=== PATIENT | male | born 1960 | race Caucasian/White ===

== ENCOUNTER 2017-10-25 00:53 | Inpatient (IN) | payer BC ==
[2017-10-22 09:52] VITALS: BP 170/86
[2017-10-22 10:13] LABS: BASOPHIL # 0.1 10^3/uL (0.0-0.1); BASOPHIL % 0.6 % (0.0-0.2); BILIRUBIN,URINE NEGATIVE (NEGATIVE); EOSINOPHIL # 0.4 10^3/uL (0.0-0.2); EOSINOPHIL % 4.7 % (0.0-5.0); LYMPHOCYTES # 2.7 10^3/uL (1.0-4.8); LYMPHOCYTES % 31.4 % (24.0-44.0); MEAN CELL HGB 30.7 pg (26-34); MEAN CELL HGB CONCENTRATION 33.8 g/dL (33-37); MEAN CORP VOLUME 90.8 fL (78-100); MEAN PLATELET VOLUME 9.7 fL (7.8-11.0); MONOCYTES # 1.3 10^3/uL (0.3-0.8); MONOCYTES % 15.3 % (5.0-12.0); NEUTROPHILS % 47.8 % (41.0-85.0); RED CELL DISTRIBUTION WIDTH 13.2 % (11.5-14.5); UROBILINOGEN,URINE NORMAL (NEGATIVE); WHITE BLOOD CELL 8.4 10^3/uL (4.5-11.0)
[2017-10-22 10:24] LABS: APPEARANCE,URINE CLEAR (CLEAR); UA COLOR YELLOW (YELLOW)
--- NOTE | 2017-10-22 10:26 | PCM.EKG ---
[facility] Test Date: 2017-10-22 Test Time: 10:29:36 Pat Name: DOMINIC LAZO Department: Room: Gender: M Manager Mortgage: : 1960 Requested By: GURU SEGOVIA Order Number: [id number] Reading MD: Gilbert Romero Measurements Intervals [place] Rate: 72 P: 77 WI: 156 QRS: 79 QRSD: 100 T: 64 QT: 384 QTc: 420 Interpretive Statements Normal sinus rhythm Normal ECG No previous ECG available for comparison Electronically Signed On 10-25-2017 8:06:03 CDT by Gilbert Romero Please click the below link to view image of tracing.
[2017-10-22 10:28] LABS: CALCIUM 9.1 mg/dL (8.4-10.5); CARBON DIOXIDE 27.8 mmol/L (20.0-32)
[~2017-10-25] VITALS: Ht 172.7 cm; Wt 105.7 kg
[2017-10-25] VITALS (11 sets, daily range): BP systolic 111–149; BP diastolic 66–96
[~2017-10-25 00:53] MED LIST: BUPR1FIL5 SL; GABA300C10 PO; MELO15TA24 PO; TEST200V3 IM
[2017-10-25] MEDS ORDERED: LACTATED RINGERS 1,000 ML ONE (05:28)
[2017-10-25] MEDS ORDERED: VANCOMYCIN HCL 2 GM ONE (05:29)
[2017-10-25] MEDS ORDERED: NS 500ML 500 ML IV ONE (05:29)
[2017-10-25] MEDS ORDERED: BACTROBAN OINTMENT TP ONE ×2 (05:29→21:04)
[2017-10-25] MEDS ORDERED: ANCEF 3 GM in NS 100ML 100 ML IV ONE (06:00)
[2017-10-25] MEDS ORDERED: CELEBREX PO SCH ×2 (07:00→21:00)
[2017-10-25] MEDS ORDERED: TYLENOL PO SCH (07:00)
[2017-10-25] MEDS: TYLENOL PO SCH ×3 (07:00→19:00)
[2017-10-25] MEDS ORDERED: NEURONTIN PO SCH (07:00)
[2017-10-25] MEDS ORDERED: NEOSTIGMINE ONE (07:04)
[2017-10-25] MEDS ORDERED: DECADRON ONE (07:04)
[2017-10-25] MEDS ORDERED: ZOFRAN ONE (07:04)
[2017-10-25] MEDS ORDERED: DIPRIVAN IV ONE (07:05)
[2017-10-25] MEDS ORDERED: ZEMURON IV ONE (07:05)
[2017-10-25] MEDS ORDERED: SUBLIMAZE ONE (07:05)
[2017-10-25] MEDS ORDERED: VERSED ONE ×2 (07:05→10:33)
[2017-10-25] MEDS ORDERED: SENSORCAINE-MPF 0.5% VIAL ONE (07:06)
[2017-10-25] MEDS ORDERED: LIDOCAINE 2% VIAL ONE (07:06)
[2017-10-25] MEDS ORDERED: NAROPIN 0.2% 40 MG/20 ML VIAL ONE (07:06)
[2017-10-25] MEDS ORDERED: LACTATED RINGERS 2,000 ML ONE (07:06)
[2017-10-25] MEDS ORDERED: CLONIDINE 1,000 MCG/10 ML VIAL EP ONE (07:07)
[2017-10-25] MEDS ORDERED: TRANEXAMIC ACID IV ONE (07:23)
[2017-10-25] MEDS ORDERED: SODIUM CHLORIDE IR ONE (07:27)
[2017-10-25] MEDS ORDERED: NS 250ML 250 ML IV ONE (07:27)
[2017-10-25] MEDS ORDERED: NS 3000ML IRR IR ONE (07:27)
[2017-10-25] MEDS ORDERED: NS 100ML 100 ML IV ONE (07:27)
[2017-10-25] MEDS ORDERED: EXPAREL 266 MG/20 ML VIAL IJ ONE (08:27)
[2017-10-25] MEDS ORDERED: VANCOMYCIN HCL 2 GM in NS 250ML 250 ML IV ONE (09:00)
[2017-10-25] MEDS: LACTATED RINGERS 1,000 ML IV SCH ×2 (09:54→20:13)
[2017-10-25] MEDS ORDERED: CELEBREX ONE (09:55)
[2017-10-25] MEDS ORDERED: TYLENOL PO ONE (09:55)
[2017-10-25] MEDS ORDERED: NEURONTIN ONE (09:55)
[2017-10-25] MEDS ORDERED: DILAUDID ONE (10:23)
[2017-10-25] MEDS ORDERED: LACTATED RINGERS 1,000 ML IV SCH (14:00)
[2017-10-25] MEDS ORDERED: DILAUDID IV PRN (14:00)
[2017-10-25] MEDS ORDERED: VANCOMYCIN HCL 2 GM in NS 500ML 500 ML IV PRN (14:00)
[2017-10-25] MEDS ORDERED: CEPACOL SORE THROAT LOZENGE MM PRN (14:00)
--- NOTE | 2017-10-25 14:15 | DIREP ---
PROCEDURE:XRAY KNEE 2 VWS-LT COMPARISON:None. INDICATIONS:postop FINDINGS: Postoperative AP and lateral radiographs demonstrate the left total knee arthroplasty components to be well seated and in anatomic alignment without evidence of fracture. There appears to have been resurfacing of the posterior patella as well. CONCLUSION: 1. Left total knee arthroplasty in anatomic alignment without evidence of fracture. Dictated by: Ollie Adair M.D. on 10/25/2017 at 02:13 PM
--- NOTE | 2017-10-25 14:55 | NUR ---
REPORT PT ARRIVED IN THE UNIT FROM OR. RECEIVED REPORT FROM GAVIN GARNER. PT HAD A TOTAL KNEE ON LEFT KNEE AND IS ON ICEMAN AND BILATERAL SCD'S. PT REPORTS PAIN OF 9 ON A SCALE OF 0-10 AND ASKED FOR WATER. DENIES ANY OTHER NEEDS AT THIS TIME.
[2017-10-25] MEDS: NEURONTIN PO SCH ×2 (15:00→20:15)
[2017-10-25] MEDS: TYLENOL #4 PO SCH ×3 (15:23→21:05)
--- NOTE | 2017-10-25 15:43 | OPH ---
DATE OF SURGERY: 10/25/2017 PREOPERATIVE DIAGNOSIS: Osteoarthritis of the left knee. POSTOPERATIVE DIAGNOSIS: Osteoarthritis of the left knee. OPERATIVE PROCEDURE: Left total knee arthroplasty using Medacta size 6 femur, a size 6 tibia and 11 mm insert, a large dome patella. All components were cemented. We used a Medacta severe knee. ANESTHESIA: General endotracheal. TOURNIQUET TIME: 95 minutes at 300 mmHg. DRAINS: None. BLOOD LOSS: 400 mL. DESCRIPTION OF INDICATIONS: A 57-year-old male with left knee pain for several years. He has had gotten to the point now where he limps quite a bit. He is unable to work. He has difficulty with night pain as well as pain with just household ambulation. He has tried different anti-inflammatories in the past. He has had several cortisone injections with only temporary relief. He has tried bracing and physical therapy as well as [id number] ____. His x-rays show that he is [id number] medially as well as about the patellofemoral joint. The patient felt exhausted his conservative options and taken to the operating room today for left total knee arthroplasty. DESCRIPTION OF PROCEDURE: This patient was placed on the operating table in the supine position. General endotracheal anesthetic was induced without difficulty. The patient had the left thigh padded and a tourniquet was applied. Left lower extremity was then sterilely prepped and draped. The patient had the leg exsanguinated with an Esmarch and the tourniquet was inflated to 300 mmHg. The knee was flexed to 90 degrees. An anterior incision was made about the knee. Incision was taken through the skin and the subcutaneous tissues. Full thickness flaps were developed medially and laterally. The patient had a medial parapatellar arthrotomy performed. The patella was deviated laterally. The patient had the anterior and posterior cruciate ligaments released and removed. Medial and lateral meniscectomies were performed. The capsule and the MCL were released around the posterior medial corner. The osteophytes about the distal femur were trimmed with a rongeur, both medially and laterally. An intramedullary drill hole was made in the center of the femur. The distal femoral cutting block that was attached to the IM aby was placed about the distal femur, once the IM aby was passed down the shaft of the femur. The patient had the cutting block set at 9 mm in 6 degrees of valgus. The cutting block was pinned into position and the distal femoral cut was made with the power saw. The patient then had the bent knee retractor applied. The tibia was subluxed anteriorly. An intramedullary hole was made about the tibia and the tibial cutting block that was attached to the IM aby was advanced to the anteromedial portion of the tibia. The IM aby was placed down the shaft of the tibia. The cutting block was adjusted for rotation, posterior slope, varus valgus as well as depth of cut. The cutting block was pinned into position and the tibial cut was made with the power saw at 3 degrees of posterior slope. The cutting block was then removed and the IM aby was removed. The patient had the attention turned back to the femur. The #2 femoral jig was placed about the distal femur and held into position with multiple pins. It measured a size 6. The size 6, #3 jig was then placed about the distal femur and held into position with 2 screws and 2 pins. The anterior and posterior femoral cuts as well as the chamfer cuts were made. The patient had the tibia subluxed anteriorly using the bent knee retractor. The patient had the size 6 tibial trial component positioned about the tibia and held into position with multiple pins. The central drill hole was made. The cruciate punch was then used to stabilize the tibial component. The patient then had the trial reduction done with a 6 tibia, a 6 femur. We eventually got up to 11 mm insert. The 11 mm insert had full extension and good stability at 90 degrees of flexion. The patient had the final medial and lateral femoral drill holes made. The femoral sulcus cut was made. Trial components were all removed from the knee. The bone ends were copiously irrigated and dried and then the size 6 tibial component was cemented into position. The 11 mm insert was impacted and secured with an anterior screw. The size 6 femoral component was likewise cemented as was the patella. The patellar cut had been made. The drill holes had been made and a large dome patella had good coverage. The patellar component was then cemented. The excess cement was removed with curettes. Once the excess cement was removed with curettes and all the cement had hardened, the knee was irrigated with Betadine-containing solution for 3 minutes. The patient then had the tourniquet released and the bleeding was controlled with the Aquamantys. The patient then had the capsule closed with a #2 PDS in interrupted mjjjhm-[id number] manner. The subcutaneous was then closed with a 2-0 barbed Monocryl in a running manner. The skin was closed with alok. A Prevena suction type dressing was applied, reinforced with 4 x 4's, cast padding and Arun wrap. The patient was extubated in the operating room, sent to recovery in stable condition. Rai Banda MD DR: MINO/katelin JOB# [id number]
--- NOTE | 2017-10-25 16:21 | PRM.PN ---
Subjective Subjective Date: Oct 25, 2017 Time: 16:20 Subjective Awake and alert Some pain VSS NVM+ Stable Patient History: Chronic obstructive pulmonary disease 32 MOTHER, , Age:57 33 FATHER, , Age:72 Congestive heart failure 33 FATHER, , Age:72 VTE VTE Risk Total Score: 3 VTE Risk Score VTE Risk: Score 0-1 = Low Risk (Aggressive mobilization; early ambulation; no VTE prophylaxis required) Score 2: Moderate Risk (Intermittent/Pneumatic Compression Device OR Lovenox/Heparin/Coumadin) Score 3-4: High Risk (Intermittent/Pneumatic Compression Device AND Lovenox/Heparin/Coumadin) Score > or =5: Highest Risk (Intermittent/Pneumatic Compression Device AND Lovenox/Heparin/Coumadin) Review of Systems Allergies: Coded Allergies: No Known Allergies (Unverified , 02/06/15) Scheduled Buprenorphine Hcl/Naloxone Hcl (Suboxone 8 Mg-2 Mg Sl Film), 1 STRIP SL TID, ( Reported) Gabapentin (Gabapentin), 1 CAP PO TID, (Reported) Meloxicam (Meloxicam), 1 TAB PO DAILY, (Reported) Testosterone Cypionate (Testosterone Cypionate), 200 MG IM Q 2 WEEKS, (Reported) Objective Vitals and I/O Vital Sign - Last 24 Hours 10/25/17 10/25/17 10/25/17 10/25/17 09:43 09:43 10:00 10:03 Temp 99 99.0 Pulse 70 69 72 Resp 18 18 18 B/P (MAP) 128/76 (93) 133/77 (95) 140/87 (104) Pulse Ox 96 98 98 O2 Delivery Room Air Room Air Nasal Canula Nasal Canula O2 Flow Rate 2 2 10/25/17 10/25/17 10/25/17 10/25/17 10:09 13:42 13:42 13:57 Temp 97.6 97.4 97.6 97.4 Pulse 76 93 81 Resp 18 18 18 B/P (MAP) 111/75 (87) 134/96 (109) 140/89 (106) Pulse Ox 99 100 97 O2 Delivery Nasal Canula Non-Rebreather Nasal Canula O2 Flow Rate 2 15 15 3 10/25/17 10/25/17 10/25/17 10/25/17 14:12 14:27 14:42 16:08 Temp 97.8 97.8 98.0 97.8 97.8 98.0 Pulse 78 62 74 89 Resp 18 18 18 18 B/P (MAP) 149/88 (108) 134/87 (103) 131/83 (99) Pulse Ox 97 97 96 97 O2 Delivery Nasal Canula Nasal Canula Nasal Canula Nasal Cannula O2 Flow Rate 3 3 3 3.00 FiO2 32 10/25/17 16:10 Resp 18 Pulse Ox 97 Course Vitals & review Data Vital Sign - Last 24 Hours 10/25/17 10/25/17 10/25/17 10/25/17 09:43 09:43 10:00 10:03 Temp 99 99.0 Pulse 70 69 72 Resp 18 18 18 B/P (MAP) 128/76 (93) 133/77 (95) 140/87 (104) Pulse Ox 96 98 98 O2 Delivery Room Air Room Air Nasal Canula Nasal Canula O2 Flow Rate 2 2 10/25/17 10/25/17 10/25/17 10/25/17 10:09 13:42 13:42 13:57 Temp 97.6 97.4 97.6 97.4 Pulse 76 93 81 Resp 18 18 18 B/P (MAP) 111/75 (87) 134/96 (109) 140/89 (106) Pulse Ox 99 100 97 O2 Delivery Nasal Canula Non-Rebreather Nasal Canula O2 Flow Rate 2 15 15 3 10/25/17 10/25/17 10/25/17 10/25/17 14:12 14:27 14:42 16:08 Temp 97.8 97.8 98.0 97.8 97.8 98.0 Pulse 78 62 74 89 Resp 18 18 18 18 B/P (MAP) 149/88 (108) 134/87 (103) 131/83 (99) Pulse Ox 97 97 96 97 O2 Delivery Nasal Canula Nasal Canula Nasal Canula Nasal Cannula O2 Flow Rate 3 3 3 3.00 FiO2 32 10/25/17 16:10 Resp 18 Pulse Ox 97 Current Medications Medications (Trade) Dose Ordered Sig/Elsie PRN Reason Start Time Stop Time Status Last Admin Acetaminophen (Tylenol) 1,000 mg Q6H 10/25/17 07:00 11/24/17 06:59 Acetaminophen/ Codeine Phosphate (Tylenol #4) 1 tablet Q4H 10/25/17 14:00 11/24/17 13:59 10/25/17 15:23 Acetaminophen/ Codeine Phosphate (Tylenol #4) 2 tablet Q4H PRN PAIN 10/25/17 14:00 11/24/17 13:59 Celecoxib (Celebrex) 200 mg BID 10/25/17 21:00 11/24/17 20:59 Celecoxib (Celebrex) 200 mg Q12HR 10/25/17 21:00 10/25/17 21:01 Docusate Sodium (Colace) 100 mg DAILY 10/26/17 09:00 11/25/17 08:59 Famotidine (Pepcid) 20 mg DAILY 10/26/17 09:00 11/25/17 08:59 Gabapentin (Neurontin) 300 mg TID 10/25/17 15:00 11/24/17 14:59 Gabapentin (Neurontin) 400 mg Q24HRS 10/26/17 07:00 10/26/17 07:01 Hydromorphone HCl (Dilaudid) 0.5 mg Q5MIN PRN PAIN MILD 10/25/17 14:00 10/26/17 13:59 10/25/17 14:20 Hydromorphone HCl (Dilaudid) 3 mg Q4H PRN PAIN 8-10 10/25/17 14:00 11/24/17 13:59 Rivaroxaban (Xarelto) 10 mg DAILY 10/26/17 09:00 11/25/17 08:59 Throat Lozenges (Cepacol Sore Throat Lozenge) 1 each PRN PRN SORE THROAT 10/25/17 14:00 11/24/17 13:59 Vancomycin HCl 2 gm/Sodium Chloride 500 ml @ 175 mls/hr OT PRN MRSA Colonized 10/25/17 14:00 11/24/17 13:59 GURU SEGOVIA MD Oct 25, 2017 16:21
--- NOTE | 2017-10-25 17:13 | HPH ---
ADMIT DATE: 10/25/2017 CHIEF COMPLAINT: Painful left knee. HISTORY OF PRESENT ILLNESS: The patient is a 57-year-old male with a 2-3 year history of pain about the left knee secondary to osteoarthritis. The patient has gotten to the point where he has difficulty working at his job because of difficulty with ambulation. He currently takes meloxicam 15 mg once a day as well as gabapentin. In the past, he has been on different anti-inflammatories. He has had several cortisone injections with only temporary relief. The patient complains of night pain as well as limping. He has used bracing and different types of ____. He has had physical therapy at home. His x-rays show that he is mjag-qk-jwnw medially as well as about the patellofemoral joint. MEDICATIONS: Include Suboxone, testosterone, meloxicam 15 mg once a day, gabapentin 300 mg once a day. MEDICAL PROBLEMS: None. PREVIOUS SURGICAL PROCEDURES: Include herniorrhaphy, right shoulder reconstruction, right total hip arthroplasty. ALLERGIES: The patient has no known drug allergies. SOCIAL HISTORY: He lives in [place]. He stopped smoking several years ago. He does not drink alcohol. FAMILY HISTORY: Positive for rheumatoid arthritis. REVIEW OF SYSTEMS: The patient's review of systems is negative for chest pain, shortness of breath, nausea, vomiting, melena, hematochezia, dysuria, hematuria, fever, chills or weight loss. PHYSICAL EXAMINATION: GENERAL: Shows a 5 feet 8 inches, 224 pounds, white male in no acute distress. HEENT: Within normal limits. CHEST: Clear to auscultation bilaterally. HEART: Regular rate and rhythm, but no murmurs. ABDOMEN: Soft and nontender. He has good bowel sounds. EXTREMITIES: Knee exam shows a 1+ effusion. He has full extension with 120 degrees of flexion, good medial and lateral stability, mild to moderate crepitation. His Jesus Alberto and posterior drawer exams are normal. NEUROLOGIC: He is awake and alert. He is oriented x 3. His cranial nerves 2-12 are grossly intact. He has 5/5 strength in all muscle groups of both upper and lower extremities. ASSESSMENT: Osteoarthritis, left knee. PLAN: The patient is being admitted for left total knee arthroplasty. The risks and hazards of the procedure have been discussed with the patient. He understands the risk involved and wants to proceed as planned. Rai Banda MD DR: MINO/katelin JOB# [id number]
[2017-10-25 17:53] LABS: MEAN CELL HGB 30.4 pg (26-34); MEAN CELL HGB CONCENTRATION 33.1 g/dL (33-37); MEAN CORP VOLUME 91.7 fL (78-100); MEAN PLATELET VOLUME 9.6 fL (7.8-11.0); RED CELL DISTRIBUTION WIDTH 13.4 % (11.5-14.5)
[2017-10-25] MEDS: CELEBREX PO SCH (20:16)
[2017-10-25] MEDS: BACTROBAN TP SCH (21:30)
--- NOTE | 2017-10-26 00:12 | NUR ---
PT C/O PAIN 08/17RT KNEE. PT TO BE GIVEN PAIM MEDICATION SEE eMAR.
[2017-10-26] MEDS: TYLENOL #4 PO PRN ×3 (00:17→20:39)
[2017-10-26 00:40] VITALS: BP 112/84
[2017-10-26] MEDS: TYLENOL PO SCH ×4 (01:00→19:00)
[2017-10-26] MEDS: TYLENOL #4 PO SCH ×6 (02:00→22:00)
[2017-10-26 04:30] VITALS: BP 112/89
[2017-10-26 04:58] LABS: HEMOGLOBIN 14.1 g/dL (13.9-16.3); MEAN CELL HGB 30.9 pg (26-34); MEAN CELL HGB CONCENTRATION 33.8 g/dL (33-37); MEAN CORP VOLUME 91.4 fL (78-100); MEAN PLATELET VOLUME 9.9 fL (7.8-11.0); RED CELL DISTRIBUTION WIDTH 13.3 % (11.5-14.5); WHITE BLOOD CELL 14.9 10^3/uL (4.5-11.0)
[2017-10-26] MEDS ORDERED: NEURONTIN PO SCH (07:00)
--- NOTE | 2017-10-26 07:04 | NUR ---
GABAPENTIN 0700 DOSE NOT GIVEN PT TAKES 300MG TID ALREADY, WILL GET CLARIFACATION
--- NOTE | 2017-10-26 07:08 | NUR ---
CALARIFIED ORDER WITH RYAN HORTON HE SAID OK TO D/C 400MG DOSE
--- NOTE | 2017-10-26 07:12 | NUR ---
REPORT REPORT RECEIVED FROM SENIOR MECHANICAL PROJECT MANAGER
[2017-10-26 08:04] VITALS: BP 106/71
[2017-10-26] MEDS: BACTROBAN TP SCH ×2 (09:00→20:39)
[2017-10-26] MEDS: PEPCID PO SCH (09:08)
[2017-10-26] MEDS: COLACE PO SCH (09:10)
[2017-10-26] MEDS: NEURONTIN PO SCH ×3 (09:10→20:39)
[2017-10-26] MEDS: CELEBREX PO SCH ×2 (09:10→20:39)
[2017-10-26] MEDS: XARELTO PO SCH (09:11)
[2017-10-26] MEDS: DILAUDID IV PRN ×2 (09:22→18:54)
--- NOTE | 2017-10-26 10:30 | NUR ---
DISCHARGE PLAN CM VISITED WITH PATIENT REGARDING DISCHARGE PLAN AND NEEDS. PATIENT LIVES AT HOME ALONE BUT WILL BE STAYING WITH A FRIEND IN [place], [place] AFTER DISCHARGE SO HE CAN HAVE SOME EXTRA HELP DURING HIS RECOVERY. HE HAS A WALKER IN PLACE AND WANTS TO DO HIS PHYSICAL THERAPY WITH [facility] IN [place]. HE STATES HE ALSO WANTS TO GET A CPM IF POSSIBLE. PATIENT DENIES NEED FOR ANY ADDITIONAL RESOURCES AT THIS TIME. CM CONTACTED [facility] REGARDING HOME HEALTH REFERRAL. ONCE PHYSICAL THERAPY EVALUATION IS COMPLETE, CM WILL FAX CLINICAL INFORMATION TO [facility]. CM ASKED [facility] FOR CONTACT INFORMATION FOR LOCAL [employer]. CM THEN CONTACTED [facility] AND REQUESTED A BLANK ORDER FOR A CPM. DISCHARGE GOAL IS TO DISCHARGE TO [place] WITH HIS FRIEND WITH [facility] FOR PHYSICAL THERAPY, PENDING INSURANCE APPROVAL. CM DEPT WILL CONTINUE TO MONITOR DISCHARGE NEEDS.
--- NOTE | 2017-10-26 10:49 | PRM.PN ---
Subjective Subjective Date: Oct 26, 2017 Time: 10:48 Subjective Up in chair Pain ok Afebrile VSS [id number] Cont with PT Patient History: Chronic obstructive pulmonary disease 32 MOTHER, , Age:57 33 FATHER, , Age:72 Congestive heart failure 33 FATHER, , Age:72 VTE VTE Risk Total Score: >5 VTE Risk Score VTE Risk: Score 0-1 = Low Risk (Aggressive mobilization; early ambulation; no VTE prophylaxis required) Score 2: Moderate Risk (Intermittent/Pneumatic Compression Device OR Lovenox/Heparin/Coumadin) Score 3-4: High Risk (Intermittent/Pneumatic Compression Device AND Lovenox/Heparin/Coumadin) Score > or =5: Highest Risk (Intermittent/Pneumatic Compression Device AND Lovenox/Heparin/Coumadin) Review of Systems Allergies: Coded Allergies: No Known Allergies (Unverified , 02/06/15) Scheduled Buprenorphine Hcl/Naloxone Hcl (Suboxone 8 Mg-2 Mg Sl Film), 1 STRIP SL TID, ( Reported) Gabapentin (Gabapentin), 1 CAP PO TID, (Reported) Meloxicam (Meloxicam), 1 TAB PO DAILY, (Reported) Testosterone Cypionate (Testosterone Cypionate), 200 MG IM Q 2 WEEKS, (Reported) Objective Vitals and I/O Vital Sign - Last 24 Hours 10/25/17 10/25/17 10/25/17 10/25/17 13:42 13:42 13:57 14:12 Temp 97.6 97.4 97.8 97.6 97.4 97.8 Pulse 93 81 78 Resp 18 B/P (MAP) 134/96 (109) 140/89 (106) 149/88 (108) Pulse Ox 100 97 97 O2 Delivery Non-Rebreather Nasal Canula Nasal Canula O2 Flow Rate 15 15 3 3 10/25/17 10/25/17 10/25/17 10/25/17 14:27 14:42 16:08 16:10 Temp 97.8 98.0 97.8 98.0 Pulse 62 74 89 Resp 18 B/P (MAP) 134/87 (103) 131/83 (99) Pulse Ox 97 96 97 97 O2 Delivery Nasal Canula Nasal Canula Nasal Cannula O2 Flow Rate 3 3 3.00 FiO2 32 10/25/17 10/25/17 10/25/17 10/25/17 16:23 16:30 16:48 16:54 Temp 98.7 98.7 Pulse 84 Resp 18 B/P (MAP) 145/66 (92) Pulse Ox 90 O2 Delivery Room Air Nasal Cannula Nasal Cannula Nasal Cannula O2 Flow Rate 3.00 3.00 3.00 10/25/17 10/25/17 10/25/17 10/26/17 20:30 20:48 21:11 00:40 Temp 98.0 97.4 98.0 97.4 Pulse 77 86 77 Resp 18 18 B/P (MAP) 132/78 (96) 112/84 (93) Pulse Ox 98 O2 Delivery Room Air Nasal Cannula Nasal Cannula Room Air O2 Flow Rate 2.00 3.00 10/26/17 10/26/17 10/26/17 04:30 08:04 08:55 Temp 98.2 97.9 98.2 97.9 Pulse 77 65 84 Resp 18 B/P (MAP) 112/89 (97) 106/71 (83) Pulse Ox 94 97 O2 Delivery Room Air Room Air Room Air FiO2 21 Intake and Output 10/25/17 10/25/17 10/26/17 15:00 23:00 07:00 Intake Total 6750 ml 320 ml 600 ml Output Total 525 ml 2025 ml 2900 ml Balance 6225 ml -1705 ml -2300 ml Course Sepsis Screening Results: Posi: NEGATIVE Sepsis Qualifier/Stage: NO DEFINITE RISK Vitals & review Data Vital Sign - Last 24 Hours 10/25/17 10/25/17 10/25/17 10/25/17 09:43 09:43 10:00 10:03 Temp 99 99.0 Pulse 70 69 72 Resp 18 B/P (MAP) 128/76 (93) 133/77 (95) 140/87 (104) Pulse Ox 96 98 98 O2 Delivery Room Air Room Air Nasal Canula Nasal Canula O2 Flow Rate 2 2 10/25/17 10/25/17 10/25/17 10/25/17 10:09 13:42 13:42 13:57 Temp 97.6 97.4 97.6 97.4 Pulse 76 93 81 Resp 18 B/P (MAP) 111/75 (87) 134/96 (109) 140/89 (106) Pulse Ox 99 100 97 O2 Delivery Nasal Canula Non-Rebreather Nasal Canula O2 Flow Rate 2 15 15 3 10/25/17 10/25/17 10/25/17 10/25/17 14:12 14:27 14:42 16:08 Temp 97.8 97.8 98.0 97.8 97.8 98.0 Pulse 78 62 74 89 Resp 18 18 18 18 B/P (MAP) 149/88 (108) 134/87 (103) 131/83 (99) Pulse Ox 97 97 96 97 O2 Delivery Nasal Canula Nasal Canula Nasal Canula Nasal Cannula O2 Flow Rate 3 3 3 3.00 FiO2 32 10/25/17 16:10 Resp 18 Pulse Ox 97 Current Medications Medications (Trade) Dose Ordered Sig/Elsie PRN Reason Start Time Stop Time Status Last Admin Acetaminophen (Tylenol) 1,000 mg Q6H 10/25/17 07:00 11/24/17 06:59 Acetaminophen/ Codeine Phosphate (Tylenol #4) 1 tablet Q4H 10/25/17 14:00 11/24/17 13:59 10/25/17 15:23 Acetaminophen/ Codeine Phosphate (Tylenol #4) 2 tablet Q4H PRN PAIN 10/25/17 14:00 11/24/17 13:59 Celecoxib (Celebrex) 200 mg BID 10/25/17 21:00 11/24/17 20:59 Celecoxib (Celebrex) 200 mg Q12HR 10/25/17 21:00 10/25/17 21:01 Docusate Sodium (Colace) 100 mg DAILY 10/26/17 09:00 11/25/17 08:59 Famotidine (Pepcid) 20 mg DAILY 10/26/17 09:00 11/25/17 08:59 Gabapentin (Neurontin) 300 mg TID 10/25/17 15:00 11/24/17 14:59 Gabapentin (Neurontin) 400 mg Q24HRS 10/26/17 07:00 10/26/17 07:01 Hydromorphone HCl (Dilaudid) 0.5 mg Q5MIN PRN PAIN MILD 10/25/17 14:00 10/26/17 13:59 10/25/17 14:20 Hydromorphone HCl (Dilaudid) 3 mg Q4H PRN PAIN 8-10 10/25/17 14:00 11/24/17 13:59 Rivaroxaban (Xarelto) 10 mg DAILY 10/26/17 09:00 11/25/17 08:59 Throat Lozenges (Cepacol Sore Throat Lozenge) 1 each PRN PRN SORE THROAT 10/25/17 14:00 11/24/17 13:59 Vancomycin HCl 2 gm/Sodium Chloride 500 ml @ 175 mls/hr OT PRN MRSA Colonized 10/25/17 14:00 11/24/17 13:59 GURU SEGOVIA MD Oct 26, 2017 10:49
--- NOTE | 2017-10-26 10:59 | NUR ---
Post-op day 1 follow-up post femoral, adductor canal, and iPACK block to left leg. Pt v/s stable. Pt has ambulated with PT. Pt states he has had a lot of pain from muscle spasms in upper thigh radiating down along lateral side of knee and into his foot. Pt states pain/muscle spasms are improving with medication. Pt states he has had very little pain in the rest of his knee. Block site is cdi. Pt states no questions or concerns.
[2017-10-26 11:20] VITALS: BP 111/68
--- NOTE | 2017-10-26 16:04 | NUR ---
STATUS CPM ON AT THIS TIME. 2 TYLENOL #4 ADMINISTERED AT THIS TIME. WILL CONT TO MONITOR CALL LIGHT IN REACH
[2017-10-26 16:56] VITALS: BP 111/64
[2017-10-26 19:44] VITALS: BP 123/81
--- NOTE | 2017-10-26 20:12 | NUR ---
PT IN HALLWAY AMBULATING WITH ROLLING WALKER WITH TRANSMITTER SUPERVISOR, TOLERATED WELL, WENT 500 FT. PT BACK IN ROOM, SITTING UP IN BED, SIDE RAILS UP CALL LIGHT IN REACH. VISITORS IN ROOM.
--- NOTE | 2017-10-26 20:39 | NUR ---
PT RECEIVED PAIN MEDICATION AND HIS ORDERED HS MEDICATIONS SEE eMAR, PT WAS PLACED ON CPM, MACHINE SECURE AND FUNCTIONING PROPERLY. SIDE RAILS UP X 3, CALL LIGHT REMAINS IN REACH. CPM SET AT FLEXION AT 65 DEGREES AND -5 FLEXION.
[2017-10-27 00:39] VITALS: BP 110/57
[2017-10-27] MEDS: TYLENOL #4 PO PRN ×5 (00:45→23:24)
[2017-10-27] MEDS: TYLENOL PO SCH ×5 (01:00→23:24)
[2017-10-27] MEDS: TYLENOL #4 PO SCH ×6 (02:00→22:00)
[2017-10-27 03:54] VITALS: BP 108/66
[2017-10-27 04:57] LABS: HEMOGLOBIN 13.6 g/dL (13.9-16.3); MEAN CELL HGB 30.2 pg (26-34); MEAN CELL HGB CONCENTRATION 32.9 g/dL (33-37); MEAN CORP VOLUME 91.8 fL (78-100); MEAN PLATELET VOLUME 9.9 fL (7.8-11.0); RED CELL DISTRIBUTION WIDTH 13.6 % (11.5-14.5); WHITE BLOOD CELL 12.9 10^3/uL (4.5-11.0)
[2017-10-27 08:02] VITALS: BP 134/84
--- NOTE | 2017-10-27 08:35 | PRM.PN ---
Subjective Subjective Date: Oct 27, 2017 Time: 08:33 Subjective Pain worse this am VSS HGB 13.6 Floey out Cont with PT Add valium for Pain control Patient History: Chronic obstructive pulmonary disease 32 MOTHER, , Age:57 33 FATHER, , Age:72 Congestive heart failure 33 FATHER, , Age:72 VTE VTE Risk Total Score: >5 VTE Risk Score VTE Risk: Score 0-1 = Low Risk (Aggressive mobilization; early ambulation; no VTE prophylaxis required) Score 2: Moderate Risk (Intermittent/Pneumatic Compression Device OR Lovenox/Heparin/Coumadin) Score 3-4: High Risk (Intermittent/Pneumatic Compression Device AND Lovenox/Heparin/Coumadin) Score > or =5: Highest Risk (Intermittent/Pneumatic Compression Device AND Lovenox/Heparin/Coumadin) Review of Systems Allergies: Coded Allergies: No Known Allergies (Unverified , 02/06/15) Scheduled Buprenorphine Hcl/Naloxone Hcl (Suboxone 8 Mg-2 Mg Sl Film), 1 STRIP SL TID, ( Reported) Gabapentin (Gabapentin), 1 CAP PO TID, (Reported) Meloxicam (Meloxicam), 1 TAB PO DAILY, (Reported) Testosterone Cypionate (Testosterone Cypionate), 200 MG IM Q 2 WEEKS, (Reported) Objective Vitals and I/O Vital Sign - Last 24 Hours 10/26/17 10/26/17 10/26/17 10/26/17 08:55 11:16 11:20 16:56 Temp 98.0 97.6 98.0 97.6 Pulse 84 78 73 Resp 18 18 18 B/P (MAP) 111/68 (82) 111/64 (80) Pulse Ox 97 97 96 O2 Delivery Room Air Room Air Room Air Room Air FiO2 21 10/26/17 10/26/17 10/26/17 10/27/17 19:44 20:56 21:20 00:39 Temp 98.3 98.8 98.3 98.8 Pulse 89 90 84 Resp 18 16 17 B/P (MAP) 123/81 (95) 110/57 (74) Pulse Ox 94 94 97 O2 Delivery Room Air Room Air Room Air Room Air 10/27/17 10/27/17 03:54 08:02 Temp 98.0 98.5 98.0 98.5 Pulse 75 71 Resp 17 18 B/P (MAP) 108/66 (80) 134/84 (101) Pulse Ox 94 95 O2 Delivery Room Air Room Air Intake and Output 10/26/17 10/26/17 10/27/17 15:00 23:00 07:00 Intake Total 720 ml 240 ml 740 ml Output Total 1400 ml 900 ml 1875 ml Balance -680 ml -660 ml -1135 ml Course Sepsis Screening Results: Posi: NEGATIVE Sepsis Qualifier/Stage: NO DEFINITE RISK Vitals & review Data Vital Sign - Last 24 Hours 10/25/17 10/25/17 10/25/17 10/25/17 09:43 09:43 10:00 10:03 Temp 99 99.0 Pulse 70 69 72 Resp 18 B/P (MAP) 128/76 (93) 133/77 (95) 140/87 (104) Pulse Ox 96 98 98 O2 Delivery Room Air Room Air Nasal Canula Nasal Canula O2 Flow Rate 2 2 10/25/17 10/25/17 10/25/17 10/25/17 10:09 13:42 13:42 13:57 Temp 97.6 97.4 97.6 97.4 Pulse 76 93 81 Resp 18 B/P (MAP) 111/75 (87) 134/96 (109) 140/89 (106) Pulse Ox 99 100 97 O2 Delivery Nasal Canula Non-Rebreather Nasal Canula O2 Flow Rate 2 15 15 3 10/25/17 10/25/17 10/25/17 10/25/17 14:12 14:27 14:42 16:08 Temp 97.8 97.8 98.0 97.8 97.8 98.0 Pulse 78 62 74 89 Resp 18 B/P (MAP) 149/88 (108) 134/87 (103) 131/83 (99) Pulse Ox 97 97 96 97 O2 Delivery Nasal Canula Nasal Canula Nasal Canula Nasal Cannula O2 Flow Rate 3 3 3 3.00 FiO2 32 10/25/17 16:10 Resp 18 Pulse Ox 97 Current Medications Medications (Trade) Dose Ordered Sig/Elsie PRN Reason Start Time Stop Time Status Last Admin Acetaminophen (Tylenol) 1,000 mg Q6H 10/25/17 07:00 11/24/17 06:59 Acetaminophen/ Codeine Phosphate (Tylenol #4) 1 tablet Q4H 10/25/17 14:00 11/24/17 13:59 10/25/17 15:23 Acetaminophen/ Codeine Phosphate (Tylenol #4) 2 tablet Q4H PRN PAIN 10/25/17 14:00 11/24/17 13:59 Celecoxib (Celebrex) 200 mg BID 10/25/17 21:00 11/24/17 20:59 Celecoxib (Celebrex) 200 mg Q12HR 10/25/17 21:00 10/25/17 21:01 Docusate Sodium (Colace) 100 mg DAILY 10/26/17 09:00 11/25/17 08:59 Famotidine (Pepcid) 20 mg DAILY 10/26/17 09:00 11/25/17 08:59 Gabapentin (Neurontin) 300 mg TID 10/25/17 15:00 11/24/17 14:59 Gabapentin (Neurontin) 400 mg Q24HRS 10/26/17 07:00 10/26/17 07:01 Hydromorphone HCl (Dilaudid) 0.5 mg Q5MIN PRN PAIN MILD 10/25/17 14:00 10/26/17 13:59 10/25/17 14:20 Hydromorphone HCl (Dilaudid) 3 mg Q4H PRN PAIN 8-10 10/25/17 14:00 11/24/17 13:59 Rivaroxaban (Xarelto) 10 mg DAILY 10/26/17 09:00 11/25/17 08:59 Throat Lozenges (Cepacol Sore Throat Lozenge) 1 each PRN PRN SORE THROAT 10/25/17 14:00 11/24/17 13:59 Vancomycin HCl 2 gm/Sodium Chloride 500 ml @ 175 mls/hr OT PRN MRSA Colonized 10/25/17 14:00 11/24/17 13:59 GURU SEGOVIA MD Oct 27, 2017 08:35
[2017-10-27] MEDS ORDERED: VALIUM PO PRN (09:00)
[2017-10-27] MEDS: COLACE PO SCH (09:45)
[2017-10-27] MEDS: PEPCID PO SCH (09:46)
[2017-10-27] MEDS: NEURONTIN PO SCH ×3 (09:46→21:10)
[2017-10-27] MEDS: CELEBREX PO SCH ×2 (09:49→21:10)
[2017-10-27] MEDS: BACTROBAN TP SCH ×2 (09:50→21:09)
[2017-10-27] MEDS: XARELTO PO SCH (09:50)
[2017-10-27 11:54] VITALS: BP 117/70
--- NOTE | 2017-10-27 12:43 | NUR ---
HOME HEALTH/CPM UPDATE CM CONTACTED [facility] IN [place], [place] REGARDING STATUS OF REFERRAL. PATIENT HAS BEEN APPROVED AND THEY WILL GO TO VISIT PATIENT @ [facility] ON Wednesday10/29/17 TO GET HIM ADMITTED. CM THEN CONTACTED [facility] IN [place] TO CHECK STATUS OF CPM APPROVAL. PATIENT HAS BEEN APPROVED AND THEY WOULD LIKE FOR THE PATIENT TO CALL THEM @ [phone] ONCE HE GETS TO [place] AND THEY WILL DELIVER IT. ALL ABOVE DOCUMENTATION IS DOCUMENTED ON DISCHARGE SUMMARY FOR PATIENT. CM DEPT WILL CONTINUE TO MONITOR DISCHARGE NEEDS.
[2017-10-27 17:34] VITALS: BP 123/76
[2017-10-27 19:00] VITALS: BP 119/72
--- NOTE | 2017-10-27 21:00 | NUR ---
In to assess pt, placed back on CPM at this time. CPM at -5 to [address] Valium PO to be given.
[2017-10-28 00:02] VITALS: BP 132/78
[2017-10-28] MEDS: TYLENOL #4 PO SCH ×3 (02:00→08:44)
[2017-10-28 04:49] VITALS: BP 131/95
[2017-10-28] MEDS: TYLENOL #4 PO PRN ×3 (04:49→13:33)
[2017-10-28] MEDS: TYLENOL PO SCH (04:52)
[2017-10-28 08:36] VITALS: BP 136/64
[2017-10-28] MEDS: CELEBREX PO SCH (08:39)
[2017-10-28] MEDS: NEURONTIN PO SCH (08:40)
[2017-10-28] MEDS: XARELTO PO SCH (08:40)
[2017-10-28] MEDS: PEPCID PO SCH (08:40)
[2017-10-28] MEDS: COLACE PO SCH (08:40)
[2017-10-28] MEDS: BACTROBAN TP SCH (08:41)
--- NOTE | 2017-10-28 11:01 | PRM.PN ---
Subjective Subjective Date: Oct 28, 2017 Time: 11:00 Subjective Pain ok Did stairs today with PT Afebrile Dressing dry Will dc Appt 4 days Patient History: Chronic obstructive pulmonary disease 32 MOTHER, , Age:57 33 FATHER, , Age:72 Congestive heart failure 33 FATHER, , Age:72 VTE VTE Risk Total Score: >5 VTE Risk Score VTE Risk: Score 0-1 = Low Risk (Aggressive mobilization; early ambulation; no VTE prophylaxis required) Score 2: Moderate Risk (Intermittent/Pneumatic Compression Device OR Lovenox/Heparin/Coumadin) Score 3-4: High Risk (Intermittent/Pneumatic Compression Device AND Lovenox/Heparin/Coumadin) Score > or =5: Highest Risk (Intermittent/Pneumatic Compression Device AND Lovenox/Heparin/Coumadin) Review of Systems Allergies: Coded Allergies: No Known Allergies (Unverified , 02/06/15) Scheduled Buprenorphine Hcl/Naloxone Hcl (Suboxone 8 Mg-2 Mg Sl Film), 1 STRIP SL TID, ( Reported) Gabapentin (Gabapentin), 1 CAP PO TID, (Reported) Meloxicam (Meloxicam), 1 TAB PO DAILY, (Reported) Testosterone Cypionate (Testosterone Cypionate), 200 MG IM Q 2 WEEKS, (Reported) Objective Vitals and I/O Vital Sign - Last 24 Hours 10/27/17 10/27/17 10/27/17 10/27/17 11:54 17:34 19:00 19:27 Temp 97.8 98.6 99.0 97.8 98.6 99.0 Pulse 79 76 93 82 Resp 18 18 18 16 B/P (MAP) 117/70 (86) 123/76 (92) 119/72 (88) Pulse Ox 94 94 91 98 O2 Delivery Room Air Room Air Room Air FiO2 21 10/27/17 10/28/17 10/28/17 10/28/17 21:14 00:02 04:49 08:36 Temp 98.2 98.2 96.9 98.2 98.2 96.9 Pulse 87 76 97 Resp 18 18 18 B/P (MAP) 132/78 (96) 131/95 (107) 136/64 (88) Pulse Ox 99 96 97 O2 Delivery Room Air Room Air Room Air Room Air 10/28/17 10/28/17 08:38 08:54 Pulse 97 Resp 18 Pulse Ox 97 O2 Delivery Room Air Room Air FiO2 21 Intake and Output 10/27/17 10/27/17 10/28/17 15:00 23:00 07:00 Intake Total 480 ml 670 ml 702 ml Output Total 900 ml 1300 ml 1100 ml Balance -420 ml -630 ml -398 ml Course Sepsis Screening Results: Posi: NEGATIVE Sepsis Qualifier/Stage: NO DEFINITE RISK Vitals & review Data Vital Sign - Last 24 Hours 10/25/17 10/25/17 10/25/17 10/25/17 09:43 09:43 10:00 10:03 Temp 99 99.0 Pulse 70 69 72 Resp 18 18 B/P (MAP) 128/76 (93) 133/77 (95) 140/87 (104) Pulse Ox 96 98 98 O2 Delivery Room Air Room Air Nasal Canula Nasal Canula O2 Flow Rate 2 2 10/25/17 10/25/17 10/25/17 10/25/17 10:09 13:42 13:42 13:57 Temp 97.6 97.4 97.6 97.4 Pulse 76 93 81 Resp 18 B/P (MAP) 111/75 (87) 134/96 (109) 140/89 (106) Pulse Ox 99 100 97 O2 Delivery Nasal Canula Non-Rebreather Nasal Canula O2 Flow Rate 2 15 15 3 10/25/17 10/25/17 10/25/17 10/25/17 14:12 14:27 14:42 16:08 Temp 97.8 97.8 98.0 97.8 97.8 98.0 Pulse 78 62 74 89 Resp 18 B/P (MAP) 149/88 (108) 134/87 (103) 131/83 (99) Pulse Ox 97 97 96 97 O2 Delivery Nasal Canula Nasal Canula Nasal Canula Nasal Cannula O2 Flow Rate 3 3 3 3.00 FiO2 32 10/25/17 16:10 Resp 18 Pulse Ox 97 Current Medications Medications (Trade) Dose Ordered Sig/Elsie PRN Reason Start Time Stop Time Status Last Admin Acetaminophen (Tylenol) 1,000 mg Q6H 10/25/17 07:00 11/24/17 06:59 Acetaminophen/ Codeine Phosphate (Tylenol #4) 1 tablet Q4H 10/25/17 14:00 11/24/17 13:59 10/25/17 15:23 Acetaminophen/ Codeine Phosphate (Tylenol #4) 2 tablet Q4H PRN PAIN 10/25/17 14:00 11/24/17 13:59 Celecoxib (Celebrex) 200 mg BID 10/25/17 21:00 11/24/17 20:59 Celecoxib (Celebrex) 200 mg Q12HR 10/25/17 21:00 10/25/17 21:01 Docusate Sodium (Colace) 100 mg DAILY 10/26/17 09:00 11/25/17 08:59 Famotidine (Pepcid) 20 mg DAILY 10/26/17 09:00 11/25/17 08:59 Gabapentin (Neurontin) 300 mg TID 10/25/17 15:00 11/24/17 14:59 Gabapentin (Neurontin) 400 mg Q24HRS 10/26/17 07:00 10/26/17 07:01 Hydromorphone HCl (Dilaudid) 0.5 mg Q5MIN PRN PAIN MILD 10/25/17 14:00 10/26/17 13:59 10/25/17 14:20 Hydromorphone HCl (Dilaudid) 3 mg Q4H PRN PAIN 8-10 10/25/17 14:00 11/24/17 13:59 Rivaroxaban (Xarelto) 10 mg DAILY 10/26/17 09:00 11/25/17 08:59 Throat Lozenges (Cepacol Sore Throat Lozenge) 1 each PRN PRN SORE THROAT 10/25/17 14:00 11/24/17 13:59 Vancomycin HCl 2 gm/Sodium Chloride 500 ml @ 175 mls/hr OT PRN MRSA Colonized 10/25/17 14:00 11/24/17 13:59 GURU SEGOVIA MD Oct 28, 2017 11:01
[2017-10-28 11:49] VITALS: BP 136/64
--- NOTE | 2017-10-28 13:47 | NUR ---
OFF UNIT PT OFF UNIT VIA W/C AT THIS TIME. PT TAKEN TO PRIVATE VEHICLE IN STABLE CONDITION.
--- NOTE | 2017-10-28 18:28 | DSH ---
DATE OF DISCHARGE: 10/28/2017 ADMITTING DIAGNOSIS: Osteoarthritis of the left knee. DISCHARGE DIAGNOSIS: Osteoarthritis of the left knee. PROCEDURE PERFORMED: Left total knee replacement, date 10/25/2017. CONSULTATIONS: None. COMPLICATIONS: None. SUMMARY OF ADMISSION: The patient is a 57-year-old male with debilitating left knee pain secondary to osteoarthritis for many years. He got to the point where he could not walk and had to use a cane to ambulate. He had [id number] medially as well as about his patellofemoral joint. The patient had failed conservative treatment, was taken to the operating room for left total knee arthroplasty. The patient's procedure was performed on 10/25/2017. He tolerated the procedure well. Postoperatively, he was awake and alert. Vital signs were stable and neurovascular exam has been normal. The patient has been on a regular diet postoperatively, which he has tolerated well. He has had daily PT and OT. On discharge, the patient can transfer in and out of bed independently. He can walk 100 feet with his walker and go up and down stairs. The patient's hemoglobin dropped down to 13.5. He has been on Xarelto as well as foot pump, SCDs and early ambulation for DVT prophylaxis. The patient will be discharged today on 10/28/2017. He will be instructed to leave his dressing intact. He will use his walker to ambulate. I will give him a prescription for Tylenol, #4 and Valium for the pain. I will see him back in my office in 4 days. He will use his walker to ambulate and use his CPM machine 4-6 hours a day. Rai Banda MD DR: MINO/katelin JOB# [id number]
== END 2017-10-28 14:05 | disposition home health service (06) | DRG 470 ==
LOC: MS 00:53 → EDPENDDISTM 10-28 11:49
PROVIDERS: ADMIT Orthopaedic Surgery; ATTEND Orthopaedic Surgery
PROC: 0SRD0J9 Replacement of Left Knee Joint with Synthetic Substitute, Cemented, Open Approach (ICD-10-PCS; principal; 2017-10-25 10:56)
DX: M17.12 Unilateral primary osteoarthritis, left knee (principal); Z96.641 Presence of right artificial hip joint; Z87.891 Personal history of nicotine dependence; Z82.69 Family history of other diseases of the musculoskeletal system and connective tissue; Z82.5 Family history of asthma and other chronic lower respiratory diseases; Z82.49 Family history of ischemic heart disease and other diseases of the circulatory system
CPT/HCPCS: 27447; 36415; 64447; 64450; 64999; 80053; 81000; 85025; 85027; 87070; 93005; 97161; 97165; A4338; J0690; J1100; J2001; J2250; J2405; J2710; J2795; J3010; J3490; J7030; J7040; J7050; J7120; 73560-LT; 97116-GP; 97535-GO; 97760-GP; C1776; C9290; G8978-CK; G8979-CJ; G8987; G8988; J8499

== ENCOUNTER → 2018-02-03 | Outpatient (CLI) | payer BC ==
--- NOTE | 2018-02-03 18:24 | DIREP ---
PROCEDURE:US DUPLEX EXTREM VEINS UNILATER/LIMITED-LT COMPARISON:None. INDICATIONS:Left Leg Pain/Swelling x 2 weeks TECHNIQUE:The left lower extremity was evaluated utilizing doan scale images with segmental compression, color Doppler, and spectral Doppler with respiratory variation and augmentation. FINDINGS: Common femoral vein:Patent Profunda femoris vein:Patent Superficial femoral vein:Patent Greater saphenous vein:Patent Popliteal vein:Patent Posterior tibial vein:Patent Peroneal vein:Patent CONCLUSION: 1. The visualized venous segments are negative for deep venous thrombosis. Dictated by: Tereso Flores M.D. on 02/03/2018 at 06:21 PM
== END | disposition home or self-care (01) ==
LOC: RAD 17:18
PROVIDERS: ATTEND Orthopaedic Surgery
DX: M79.605 Pain in left leg (principal); R22.42 Localized swelling, mass and lump, left lower limb
CPT/HCPCS: 93971

== ENCOUNTER → 2021-07-31 | Outpatient (CLI) | payer BC ==
[2021-07-31 14:46] LABS: MEAN CORP HGB 29.6 pg (26-34); RED CELL DISTRIBUTION WIDTH 14.5 % (11.5-14.5)
[2021-07-31 15:27] LABS: CARBON DIOXIDE 30.8 mmol/L (20.0-32)
--- NOTE | 2021-07-31 18:54 | DIREP ---
PROCEDURE:CHEST 2 VIEWS COMPARISON:[facility], CR, XRAY CHEST 2 VWS, 12/04/2020, 04:44 PM. INDICATIONS:CHF FINDINGS: LUNGS/PLEURA:Chronic obstructive lung disease changes, without focal airspace opacity. No effusions. VASCULATURE:Normal. Unremarkable pulmonary vasculature. CARDIAC: Normal. No cardiac silhouette abnormality or cardiomegaly. MEDIASTINUM:Normal. No visible mass or adenopathy. BONES:Multilevel degenerative changes of the thoracic spine. OTHER:Negative. CONCLUSION:COPD changes, without acute cardiopulmonary process. Dictated by: Mian Tovar DO on 07/31/2021 at 06:52 PM
== END | disposition home or self-care (01) ==
LOC: RAD 14:28
PROVIDERS: ATTEND Specialist
DX: J44.9 Chronic obstructive pulmonary disease, unspecified (principal); I50.9 Heart failure, unspecified
CPT/HCPCS: 36415; 71046; 80053; 80061; 82306; 83735; 83880; 84443; 84484; 85027; 86140

== ENCOUNTER → 2021-09-26 | Day surgery (SDC) | payer BC ==
[2021-09-22 14:00] VITALS: BP 111/78
[2021-09-22 14:36] LABS: BASOPHIL # 0.1 10^3/uL (0.0-0.1); EOSINOPHIL # 0.2 10^3/uL (0.0-0.2); EOSINOPHIL % 2.3 % (0.0-5.0); LYMPHOCYTES # 0.65 10^3/uL1 (1.0-4.8); LYMPHOCYTES % 7.4 % (24.0-44.0); MEAN CORP HGB 29.7 pg (26-34); MONOCYTES # 1.3 10^3/uL (0.3-0.8); MONOCYTES % 14.2 % (5.0-12.0); NEUTROPHIL # 6.6 10^3/uL (1.8-7.7); NEUTROPHILS % 74.9 % (41.0-85.0); PLATELET COUNT 301 10^3/uL (150-400); RED CELL DISTRIBUTION WIDTH 13.7 % (11.5-14.5)
--- NOTE | 2021-09-22 14:41 | PCM.EKG ---
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
[2021-09-22 14:52] LABS: CARBON DIOXIDE 26.3 mmol/L (20.0-32)
--- NOTE | 2021-09-22 15:04 | DIREP ---
PROCEDURE:CHEST 2 VIEWS COMPARISON:[facility], CR, XRAY CHEST 2 VWS, 07/31/2021, 02:52 PM. INDICATIONS:PRE-OP L R HEART CATH, ABNORMAL STRESS TEST, RIGHT HEART FAILURE FINDINGS: LUNGS/PLEURA:Mild hyperinflation. Mild interstitial prominence may reflect senescent changes or potential underlying chronic lung disease such as COPD. No confluent airspace consolidation, pleural effusion or pneumothorax is identified. VASCULATURE:No overt central pulmonary vascular congestion. CARDIAC:The heart is not enlarged. MEDIASTINUM:Mediastinal contours appear within acceptable limits. BONES:Mild degenerative changes of the spine. Surgical anchor within the right proximal humerus. OTHER:Negative. CONCLUSION: 1. Stable chest with senescent changes or potential underlying chronic lung disease such as COPD. No superimposed acute cardiopulmonary abnormality is identified. Dictated by: Jewel Mahajan M.D. On 09/22/2021 at 03:00 PM
[~2021-09-26] VITALS: Ht 170.2 cm; Wt 108.9 kg
[~2021-09-26] MED LIST changes: +DICL50TA2 PO; +FURO20TA3 PO; +GABA300C PO; +HEPARIN ONE; +NICO4LOZ PO; +NS 1000ML 1,000 ML ONE; +PHENERGAN ONE; +PHENERGAN PO ONE; +POTA10CA PO; +SACU1TAB PO; +SPIR25TA5 PO; +SUBLIMAZE ONE; +VALIUM ONE; +VALIUM PO ONE; +VERSED ONE; +XYLOCAINE ONE
[2021-09-26 06:30] VITALS: BP 133/77
[2021-09-26] MEDS: NS 1000ML 1,000 ML IV SCH ×2 (07:17→07:22)
[2021-09-26 09:29] VITALS: BP 136/80
[2021-09-26 10:07] VITALS: BP 142/92
[2021-09-26 11:50] VITALS: BP 135/57
--- NOTE | 2021-09-28 06:33 | CCRH ---
DATE OF SERVICE: 09/26/2021 DICTATOR NAME: Selene Caldera MD HEART CATH REPORT PRECATHETERIZATION DIAGNOSES: Abnormal exercise tolerance test with significant dyspnea, right-sided heart failure, hypertension, hypertensive heart disease, chronic diastolic heart failure, fairly good myocardial perfusion scan, but abnormal TID and abnormal ETT with ST-T wave changes, and symptoms of chest heaviness and significant leg edema. Assess for pulmonary hypertension and assess for flow obstructive coronary artery disease. Hence, a right and left heart catheterization were scheduled. POSTCATHETERIZATION DIAGNOSES: Left main is a fair sized vessel, appears to be fully patent. LAD is a type 3 vessel encircling the apex with a diagonal branch, which appears to be fully patent. Circumflex dominant system with posterior descending branch and posterolateral branches coming off the distal circumflex and the whole circumflex system is fully patent. Right coronary artery is a small diminutive vessel, which appears to be fully patent. The conus branch has got a separate opening and appears to be patent. Left ventricle is normal in size with an LVEDP of 5-7 mm with good wall contractility, ejection fraction of 60%. 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 Attempts were made to float a [place]-Jerad catheter through the right brachial venous percutaneous approach after insertion of a 7-Brazilian Cordis sheath was introduced and 6-Brazilian C-tipped [place]ad was attempted to float through the vein, but unable to do so. 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 The pulmonary artery pressure could not be recorded because of equipment error, but on the tracing, it showed that the left main pulmonary artery pressure was about 25-30, pulmonary capillary wedge pressure was around 5-10, right atrial pressure was 5 mean. These were seen on the monitor, which was photographed and monitor was done and cardiac output could not be measured because of faulty equipment. Subsequently Mynx control closure device was used, will probably get CTA of the venous system to assess if there is an anomalous origin of vein going into the coronary sinus. The patient tolerated procedure well. He does have right heart failure and is on optimum medical therapy. PREOPERATIVE MEDICATIONS: Phenergan 25 mg p.o., Valium 2.5 mg p.o., fentanyl 62.5 mcg IV and Versed 1 mg IV. ANTICOAGULATION: Heparin 2000 units intra-arterially, 2000 units in the flush solution, 1000 units in the dye solution. DYE USED: Visipaque, total amount 110 mL. Catheter; JL4 6-Brazilian, JR4 6-Brazilian, 5-Brazilian right ebony catheter, 6-Brazilian angled pigtail catheter. A 6-Brazilian C-tip [place]ad catheter. Arterial time was about 25 minutes including the right and left heart catheterization, fluoroscopy time was 9.3 minutes. PROCEDURE: Right heart catheterization, left heart catheterization, bilateral selective coronary arteriography, left ventriculography by right femoral Ngoc approach and by right femoral venous percutaneous approach. Right brachial venogram was done to assess the patency of the right subclavian vein and to assess the anomalous vein or venous anomaly for which a CTA of the venous system will be done. Under local anesthesia, right femoral artery was punctured percutaneously by arterial needle, guide wire passed in right femoral artery, 6-Brazilian Cordis sheath introduced, side port of the sheath used for femoral arterial pressure monitoring. Sheath anchored with suture. Left Ngoc catheter introduced over guide wire into ascending aorta left coronary artery cannulated and left coronary angiography performed in MALDIVIAN and DIEHL projections with craniocaudal applications to visualize all branches. Left catheter exchanged for right coronary catheter and right coronary angiography performed in MALDIVIAN and DIEHL. This catheter exchanged for 6-Brazilian pigtail catheter and catheter crossed the aortic valve and left ventricular LVEDP measured and LV gram performed in 30 degrees DIEHL view with 30 mL Omnipaque dye and panning of descending aorta attempted. Patient tolerated procedure well. No complications of procedure. Angio-Seal deployed for hemostasis. LVEDP is 5 mm, LV pressure 115/5. Femoral artery pressure 120/60 with a mean of 80. No gradient across the aorta on pullback of the central catheter. FINAL CONCLUSION: Normal coronary arteries, normal LV function. 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 CTA will be done, has symptoms of right heart failure. Continue to optimize medical therapy and clinical followup. Selene Caldera MD DR: ANGELIKA/STARLA/PATRICIA TID: [id number] RECEIPT: [id number]
== END | disposition home or self-care (01) ==
LOC: CCL 06:27
PROVIDERS: ATTEND Specialist
DX: I25.10 Atherosclerotic heart disease of native coronary artery without angina pectoris (principal); I27.20 Pulmonary hypertension, unspecified; I27.81 Cor pulmonale (chronic); I11.0 Hypertensive heart disease with heart failure; I50.32 Chronic diastolic (congestive) heart failure; I42.9 Cardiomyopathy, unspecified; I48.0 Paroxysmal atrial fibrillation; I47.1 Supraventricular tachycardia; Z87.891 Personal history of nicotine dependence; Z82.49 Family history of ischemic heart disease and other diseases of the circulatory system; Z98.890 Other specified postprocedural states; Z79.899 Other long term (current) drug therapy
CPT/HCPCS: 71046; 87426; 80053; 85025; 36415; 85610; 85730; 93005; 93460; 99153; 99152; J7030; J1644 ×3; C1894 ×3; J2250; J3010; Q9967; C1769; C1760; C1725; Q9966

== ENCOUNTER → 2021-10-20 | Outpatient (CLI) | payer BC ==
[~2021-10-20] MED LIST changes: -HEPARIN ONE; -NS 1000ML 1,000 ML ONE; -PHENERGAN ONE; -PHENERGAN PO ONE; -SUBLIMAZE ONE; -VALIUM ONE; -VALIUM PO ONE; -VERSED ONE; -XYLOCAINE ONE
--- NOTE | 2021-10-21 10:29 | DIREP ---
PROCEDURE:CT PULMONARY ANGIOGRAM TECHNIQUE:Following the intravenous administration of contrast material, axial cuts were obtained through the chest. Multiplanar / 3-D reconstructions are provided. Satisfactory pulmonary arterial contrast opacification was achieved. Additional delayed images are submitted. COMPARISON:None. INDICATIONS:PULMONARY HYPERTENSION, COPD FINDINGS: PULMONARY ARTERIES:Patent. Within normal limits for size. LUNGS:Central airways clear. Perifissural nodule along the right fissure, image 61. Residual regarded as benign. Peripheral 6 mm left lower lobe nodule, image 70. Additional regions of scar and fibrosis. PLEURA:Normal. CARDIAC:Normal size heart and normal pulmonary vascularity. THORACIC AORTA:Normal. MEDIASTINUM:Multiple small AP window, right paratracheal, and subcarinal lymph nodes. BONES:Normal. THYROID:Normal. OTHER:Multiple additional hilar/intrapulmonary lymph nodes are also identified. 3 cm left renal cyst. CONCLUSION:No pulmonary emboli. Multiple small mediastinal and hilar lymph nodes. 6 mm peripheral left lower lobe nodule, correlation with risk factors recommended. Per Fleischner Society recommendations, if at increased risk consider noncontrast CT examination in 6 months. If at low risk, consider 1 year follow-up. Dictated by: Aniceto Henley MD on 10/21/2021 at 10:11 AM
== END | disposition home or self-care (01) ==
LOC: RAD 16:12
PROVIDERS: ATTEND Specialist
DX: I11.0 Hypertensive heart disease with heart failure (principal); I50.810 Right heart failure, unspecified; J44.9 Chronic obstructive pulmonary disease, unspecified; I27.81 Cor pulmonale (chronic); N28.1 Cyst of kidney, acquired; R06.02 Shortness of breath
CPT/HCPCS: 71275; 36415; 82565; Q9965

== ENCOUNTER → 2025-01-22 | Outpatient (CLI) | payer OTHER | END | disposition home or self-care (01) | LOC: RAD 15:40 | PROVIDERS: ATTEND Orthopaedic Surgery | DX: M25.462 Effusion, left knee (principal); M25.562 Pain in left knee; Z96.652 Presence of left artificial knee joint | CPT/HCPCS: 73562-LT ==